=== PATIENT | female | born 1965 | race African-American/Black ===

== ENCOUNTER 2020-09-17 18:30 | Emergency (ER) | payer OTHER ==
[~2020-09-17] VITALS: Ht 170.2 cm; Wt 77.1 kg
[~2020-09-17 18:30] MED LIST: ALEVE220 MG PO; ALLERGY RELIEF10 M3 PO; CIPROFLOXACIN500 M3 PO; IBUPROFEN 400400 M1 PO; IBUPROFEN 600600 M1 PO; IBUPROFEN 800800 MG PO; NAPROSYN500 MG PO; NORCO 5-325 TA1 EACH PO; PERCOCET 5-3251 EACH PO; ZOFRAN ODT4 MG PO; ZYRTEC10 M2 PO
[2020-09-17 20:00] VITALS: BP 129/76
== END 2020-09-17 20:01 | disposition home or self-care (01) ==
LOC: ER 18:30
DX: M79.671 Pain in right foot (principal); Z91.041 Radiographic dye allergy status; Z91.013 Allergy to seafood; Z79.899 Other long term (current) drug therapy; Z85.3 Personal history of malignant neoplasm of breast; Z98.890 Other specified postprocedural states; X50.1XXA Overexertion from prolonged static or awkward postures, initial encounter; Y93.02 Activity, running; Y92.89 Other specified places as the place of occurrence of the external cause; Y99.9 Unspecified external cause status